=== PATIENT | male | born 1925 | race Caucasian/White ===

== ENCOUNTER 2017-03-22 09:19 | Emergency (ER) | payer MEDICARE ==
[~2017-03-22] VITALS: Ht 185.4 cm; Wt 72.6 kg
[~2017-03-22 09:19] MED LIST: AMLO5TAB2 PO; ASCO-262 PO; HYDR-3812 PO; MAGN800O PO; MULT1CAP27 PO; VITA400C60 PO; [UNRECOGNIZED DRUG - CODE] PO
--- NOTE | 2017-03-22 10:53 | Diagnostic Imaging Report ---
PROCEDURE: CT head and CT cervical spine without contrast. TECHNIQUE: Multiple contiguous axial images were obtained through the brain and cervical spine without the use of intravenous contrast. Sagittal and coronal reformations through the cervical spine were then performed. INDICATION: Fall. FINDINGS: CT head: There is no intracranial hemorrhage, edema or mass effect. The brain parenchyma and branch-white matter differentiation is preserved with background white matter hypodensities compatible with chronic microvascular ischemic changes. Slight prominence of the lateral ventricles is likely secondary to age related overall brain volume loss. There is a minimal soft tissue thickening or small scalp hematoma along the left frontal supraorbital region. The calvarium, the orbits and paranasal sinuses appear grossly unremarkable. CT cervical spine: There is minimal posterior translation of C3 over C4. The vertebral body heights are preserved. There is multilevel moderate to severe disc height loss in the cervical spine seen. The alignment at the lateral masses of C1 and C2, atlantooccipital joints and the predental space is satisfactory. There is no facet subluxation or dislocation. There is a fusion of facet joints on the right side at the C3/4, C4/5, and C5/6 and on the left side fused facets at C4/5, C5/6 levels. There is also fusion of the uncovertebral joints at C4/5, C5-C6 and C6-7 level. No fracture seen. IMPRESSION: CT head: No intracranial hemorrhage. CT cervical spine: Advanced degenerative changes and fusion of mid cervical spine facet joints and uncovertebral joints as described. No fracture seen. Dictated by: Dictated on workstation # [id number]
--- NOTE | 2017-03-22 11:01 | ED Fall/Injury ---
General Chief Complaint: Trauma-Non Activation Stated Complaint: FALL/LACERATION Nursing Triage Note: TO ED PER [facility] FROM [facility]. STAFF REPORTS WAS MAKING HIS BED THIS AM TRIPPED AND FELL LACERATION TO BACK OF HEAD NO LOC. ABRASION NOTED TO L ELBOW. Source: patient Exam Limitations: no limitations (EDWIN MIDDLETON MD) History of Present Illness Time seen by provider: 10:38 Initial Comments Here [facility]. He was apparently making his bed when he fell backwards. States that he has left knee problems and that's what caused the fall. He has an abrasion to the left elbow. No loss of consciousness. Small laceration noted to the posterior scalp. Occurred: this morning (1 hour prior to arrival) Severity: moderate Injuries/Pain Location: head Context: lost balance Loss of Consciousness: no loss of consciousness Associated Symptoms (Fall): No Abdominal Pain, No Chest Pain, No Confusion, Headache, No Muscle Spasms, No Nausea/Vomiting, No Neck Pain, No Shortness of Air (EDWIN MIDDLETON MD) Allergies and Home Medications Allergies Coded Allergies: No Known Drug Allergies (Unverified , 03/27/16) Home Medications Amlodipine Besylate 5 Mg Tablet, 5 MG PO HS, (Reported) Ascorbate Calcium 500 Mg Tablet, 500 MG PO DAILY, (Reported) Beta-Carotene 10,000 Unit Capsule, 10,000 UNIT PO HS, (Reported) Hydrocodone/Acetaminophen 1 Each Tablet, 1-2 TAB PO Q4H PRN for PAIN, #60 Prescribed by: JAMIE ROB on 03/30/16 0906 Magnesium Hydroxide 2,400 Mg/10 Ml Oral.susp, 30 ML PO DAILY PRN for CONSTIPATION, (Reported) Multivitamin 1 Each Capsule, 1 CAP PO DAILY, (Reported) Vitamin E Acetate 400 Unit Capsule, 400 UNIT PO HS, (Reported) Constitutional: see HPI Ears, Nose, Mouth, Throat: no symptoms reported Respiratory: no symptoms reported Cardiovascular: no symptoms reported Musculoskeletal: see HPI, No back pain, No muscle pain, No neck pain Skin: see HPI, lesions (EDWIN MIDDLETON MD) All Other Systems Reviewed Negative Unless Noted: Yes (EDWIN MIDDLETON MD) Past Mxqwpax-Edtoha-Hcdrgd Hx Patient Social History Alcohol Use: Denies Use Recreational Drug Use: No Smoking Status: Never a Smoker Recent Foreign Travel: No Contact w/Someone Who Travel: No Recent Infectious Disease Expo: No (EDWIN MIDDLETON MD) Surgeries HX Surgeries: Yes (cataract) Surgeries: Orthopedic (EDWIN MIDDLETON MD) Respiratory Hx Respiratory Disorders: No (EDWIN MIDDLETON MD) Cardiovascular Hx Cardiac Disorders: Yes Cardiac Disorders: Hypertension, Syncope (EDWIN MIDDLETON MD) Neurological Hx Neurological Disorders: Yes Neurological Disorders: Dementia, TIA (EDWIN MIDDLETON MD) Genitourinary Hx Genitourinary Disorders: No (EDWIN MIDDLETON MD) Gastrointestinal Hx Gastrointestinal Disorders: Yes Gastrointestinal Disorders: Gastrointestinal Bleed (EDWIN MIDDLETON MD) Musculoskeletal Hx Musculoskeletal Disorders: No Musculoskeletal Disorders: Fractures (EDWIN MIDDLETON MD) Endocrine Hx Endocrine Disorders: No (EDWIN MIDDLETON MD) HEENT HX ENT Disorders: Yes (cataract removed) HEENT Disorders: Cataract (EDWIN MIDDLETON MD) Cancer Hx Cancer: No (EDWIN MIDDLETON MD) Psychosocial Hx Psychiatric Problems: No (EDWIN MIDDLETON MD) Integumentary HX Skin/Integumentary Disorder: No (EDWIN MIDDLETON MD) Blood Transfusions Hx Blood Disorders: Yes (THROMBOCYTOPENIA) (EDWIN MIDDLETON MD) Reviewed Nursing Assessment Reviewed/Agree w Nursing PMH: Yes (EDWIN MIDDLETON MD) Family Medical History Significant Family History: No Pertinent Family Hx (EDWIN MIDDLETON MD) Physical Exam Vital Signs Vital Sign - Last 12Hours 03/22/17 09:23 Temp 97.4 Pulse 66 Resp 18 B/P (MAP) 134/74 Pulse Ox 95 O2 Delivery Room Air (ADORE SOL) Vital Signs Capillary Refill : Less Than 3 Seconds (EDWIN MIDDLETON MD) General Appearance: WD/WN, no apparent distress HEENT: PERRL/EOMI, pharynx normal Neck: supple, other (In c-collar. After CT clearance, full range of motion without pain or tenderness.) Cardiovascular: regular rate, rhythm, no murmur Respiratory: lungs clear, normal breath sounds Gastrointestinal: non tender, soft Back: normal inspection, no CVA tenderness, no vertebral tenderness Extremities: non-tender, normal inspection Neurologic/Psychiatric: alert, oriented x 3 Skin: normal color, warm/dry (EDWIN MIDDLETON MD) [place] Coma Score Best Eye Response: (4) Open Spontaneously Best Verbal Response: (5) Oriented Best Motor Response: (6) Obeys Commands (EDWIN MIDDLETON MD) Laceration Repair : Wound Location: Scalp Wound Length (cm): 2 Wound's Depth, Shape: linear, sub Q Wound Explored: clean Betadine Prep?: Yes (and scrubbed with chlorhexadine and sterile saline) Anesthesia: 1% Lidocaine Volume Anesthetic (ccs): 2 Staple Repair: Stapler 35W Layer Closure?: 1 Sterile Dressing Applied?: Yes Progress 2 tierney used to reapproximate skin edges. blood loss minimal. patient tolerated the procedure well. (ADORE SOL) Progress/Results/Core Measures Results/Orders Vital Signs/I&O Vital Sign - Last 12Hours 03/22/17 09:23 Temp 97.4 Pulse 66 Resp 18 B/P (MAP) 134/74 Pulse Ox 95 O2 Delivery Room Air (ADORE SOL) Blood Pressure Mean: 94 Progress Note : Progress Note Seen and evaluated. CT head and neck ordered. No acute findings. C-collar removed. 2 cm laceration posterior scalp cleaned by nursing. Repair by FAUSTO Lovelace. Discharged home with return precautions. Patient verbalize understanding instructions and agreement with plan. (EDWIN MIDDLETON MD) Diagnostic Imaging Diagonstic Imaging: CT Plain Films/CT/US/NM/MRI: c-spine, head Comments NAME: [facility] REC#: [id number] PT STATUS: REG ER : 1925 PHYSICIAN: EDWIN MIDDLETON MD ADMIT DATE: 03/22/17/ER Draft Date of Exam:03/22/17 CT HEAD/CERVICAL SPINE WO PROCEDURE: CT head and CT cervical spine without contrast. TECHNIQUE: Multiple contiguous axial images were obtained through the brain and cervical spine without the use of intravenous contrast. Sagittal and coronal reformations through the cervical spine were then performed. INDICATION: Fall. FINDINGS: CT head: There is no intracranial hemorrhage, edema or mass effect. The brain parenchyma and branch-white matter differentiation is preserved with background white matter hypodensities compatible with chronic microvascular ischemic changes. Slight prominence of the lateral ventricles is likely secondary to age related overall brain volume loss. There is a minimal soft tissue thickening or small scalp hematoma along the left frontal supraorbital region. The calvarium, the orbits and paranasal sinuses appear grossly unremarkable. CT cervical spine: There is minimal posterior translation of C3 over C4. The vertebral body heights are preserved. There is multilevel moderate to severe disc height loss in the cervical spine seen. The alignment at the lateral masses of C1 and C2, atlantooccipital joints and the predental space is satisfactory. There is no facet subluxation or dislocation. There is a fusion of facet joints on the right side at the C3/4, C4/5, and C5/6 and on the left side fused facets at C4/5, C5/6 levels. There is also fusion of the uncovertebral joints at C4/5, C5-C6 and C6-7 level. No fracture seen. IMPRESSION: CT head: No intracranial hemorrhage. CT cervical spine: Advanced degenerative changes and fusion of mid cervical spine facet joints and uncovertebral joints as described. No fracture seen. Dictated on workstation # [id number] Dict: 03/22/17 1032 Trans: 03/22/17 1052 [facility] [id number] Interpreted by: BEVERLY VALERA MD Electronically signed by: (EDWIN MIDDLETON MD) Departure Impression Impression: Primary Impression: Scalp laceration Qualified Codes: S01.01XA - Laceration without foreign body of scalp, initial encounter Additional Impressions: Abrasion of left elbow Qualified Codes: S50.312A - Abrasion of left elbow, initial encounter Minor head injury without loss of consciousness Qualified Codes: S09.90XA - Unspecified injury of head, initial encounter Disposition: 01 HOME, SELF-CARE Condition: Improved Departure-Patient Inst. Decision time for Depature: 11:18 (EDWIN MIDDLETON MD) Referrals: ROSALINO WHELAN MD (PCP/Family) Primary Care Physician Patient Instructions: Laceration Repair With [place] (DC), Minor Head Injury ( DC), Skin Abrasions (DC) Add. Discharge Instructions: All discharge instructions reviewed with patient and/or family. Voiced understanding. Tierney out in 7 days. Use antibiotic ointment over wound once or twice daily for the next several days and then as needed. Follow-up with your Dr. in a few days for recheck as needed. Return for worse pain, swelling, weakness, vision or balance problems or other concerns as needed. EDWIN MIDDLETON MD Mar 22, 2017 11:01 ADORE SOL Mar 22, 2017 11:51
[2017-03-22] MEDS ORDERED: TETANUS,DIPTH,PERTUSS P/F (BOOSTRIX) 0.5 ML VIAL IM STA (11:16)
[2017-03-22] MEDS ORDERED: LIDOCAINE 1% INJ 20 ML (XYLOCAINE) VIAL INJ STA (11:16)
[2017-03-22 13:52] VITALS: BP 138/81
== END 2017-03-22 13:51 | disposition home or self-care (01) ==
LOC: EDUNIT# 09:19 → ER 09:21
DX: S01.01XA Laceration without foreign body of scalp, initial encounter (principal); S50.312A Abrasion of left elbow, initial encounter; F03.90 Unspecified dementia, unspecified severity, without behavioral disturbance, psychotic disturbance, mood disturbance, and anxiety; I10 Essential (primary) hypertension; Z86.73 Personal history of transient ischemic attack (TIA), and cerebral infarction without residual deficits; W01.190A Fall on same level from slipping, tripping and stumbling with subsequent striking against furniture, initial encounter
CPT/HCPCS: 70450; 72125; 90471; 90715